=== PATIENT | female | born 1990 ===

== ENCOUNTER 2017-07-08 14:13 | Emergency (ER) | payer OTHER ==
[2017-07-08 14:38] VITALS: BP 140/85; PULSE 91; RESP 18; TEMP 98.1; O2SAT 100
[2017-07-08 15:19] LABS: SQUAMOUS EPITHIAL 11 /hpf (0-5); URINE BACTERIA RARE (<OCC); URINE BILIRUBIN NEGATIVE (NEGATIVE); URINE BLOOD NEGATIVE (NEGATIVE); URINE CLARITY CLOUDY (Clear); URINE COLOR STRAW (YELLOW); URINE GLUCOSE (UA) NEG (Normal); URINE LEUKOCYTE ESTERASE MOD Leu/uL (Negative); URINE NITRATE NEGATIVE (NEGATIVE); URINE PROTEIN NEGATIVE (NEGATIVE); URINE UROBILINOGEN 0.2-1.0 mg/dL (0.2-1.0)
--- NOTE | 2017-07-08 15:37 | ED PDOC ---
HPI: Female Pain Time Seen by Provider: 07/08/17 15:35 Chief Complaint (Nursing): Female Genitourinary Chief Complaint (Provider): DYSURIA History Per: Patient (27 Y/O FEMALE HERE FOR DYSURIA NOTED X FEW DAYS. STATES SHE HAS VAGINAL PRUIRITIS AND NOTES BURNING AFTER URINATION. FEELS BURNING IS RELATED TO EXTERNAL SURFACE AND NOT ABDOMINAL REGION. NO FEVERS/CHILLS. NO NEW SEXUAL PARTNERS BUT STATES SHE IS SEXUALLY ACTIVE.) Past Medical History Reviewed: Historical Data, Nursing Documentation, Vital Signs Vital Signs: Last Vital Signs Temp 98.1 F 07/08/17 14:36 Pulse 91 H 07/08/17 14:36 Resp 18 07/08/17 14:36 BP 140/85 07/08/17 14:36 Pulse Ox 100 07/08/17 14:36 - Medical History Other PMH: OVARIAN CYST - Family History Family History: States: No Known Family Hx - Home Medications Home Medications: Ambulatory Orders Medication Instructions Recorded Albuterol HFA [Ventolin HFA 90 2 puff IH [id number] PRN #0 puff 06/30/15 mcg/actuation (8 g)] Azithromycin [Zithromax Z-José Miguel] 250 mg PO DAILY #6 tab 06/30/15 Promethazine DM [Phenergan DM Oral 5 ml PO Q8 #100 ml 06/30/15 Syrup] Miconazole [Monistat 3] 200 mg VAG DAILY #3 sup 07/08/17 - Allergies Allergies/Adverse Reactions: Allergies Allergy/AdvReac Type Severity Reaction Status Date / Time No Known Allergies Allergy Verified 07/08/17 14:36 Review of Systems ROS Statement: Except As Marked, All Systems Reviewed And Found Negative Genitourinary Female: Positive for: Dysuria Physical Exam - Reviewed Nursing Documentation Reviewed: Yes Vital Signs Reviewed: Yes - Physical Exam Appears: Positive for: Well, Non-toxic, No Acute Distress Head Exam: Positive for: ATRAUMATIC, NORMAL INSPECTION, NORMOCEPHALIC Skin: Positive for: Normal Color, Warm, DRY Eye Exam: Positive for: EOMI, Normal appearance, PERRL ENT: Positive for: Normal ENT Inspection Neck: Positive for: Normal, Painless ROM Cardiovascular/Chest: Positive for: Regular Rate, Rhythm Respiratory: Positive for: CNT, Normal Breath Sounds Gastrointestinal/Abdominal: Positive for: Normal Exam, Bowel Sounds, Soft Pelvic Exam: Positive for: External Exam Normal, Discharge (VAGINGAL DISCHARGE THIN GREYISH NOTED. NO FOUL ODOR.) Back: Positive for: Normal Inspection Extremity: Positive for: Normal ROM Neurologic/Psych: Positive for: Alert, Oriented - Laboratory Results Urine POC: Negative Urine dip results: Negative for: Leukocyte Esterase, Blood, Nitrate, Ketones, Glucose, Bilirubin - ECG O2 Sat by Pulse Oximetry: 100 Disposition - Clinical Impression Clinical Impression: Vaginitis, Urinary tract infection - Patient ED Disposition Is Patient to be Admitted: No - Disposition [facility] Disposition: Routine/Home Disposition Time: 15:41 Condition: FAIR Prescriptions: Miconazole [Monistat 3] 200 mg VAG DAILY #3 sup Instructions: Vaginitis (ED) Forms: [facility] (Polish)
== END 2017-07-08 16:22 | disposition home or self-care (01) ==
LOC: H.ER 14:13
DX: N76.0 Acute vaginitis (principal)

== ENCOUNTER 2017-10-27 10:23 | Observation (INO) | payer OTHER ==
[2017-10-27 12:58] LABS: SQUAMOUS EPITHIAL 1 /hpf (0-5); URINE BACTERIA RARE (<OCC); URINE BILIRUBIN NEGATIVE (NEGATIVE); URINE BLOOD NEGATIVE (NEGATIVE); URINE CLARITY CLEAR (Clear); URINE COLOR COLORLESS (YELLOW); URINE GLUCOSE (UA) NEG (Normal); URINE LEUKOCYTE ESTERASE NEG Leu/uL (Negative); URINE PROTEIN NEGATIVE (NEGATIVE); URINE UROBILINOGEN 0.2-1.0 mg/dL (0.2-1.0)
--- NOTE | 2017-10-27 13:22 | ED PDOC ---
HPI: General Adult Time Seen by Provider: 10/27/17 12:03 Chief Complaint (Nursing): Hip Pain Chief Complaint (Provider): Pelvic Pain History Per: Patient, Other (offered translator interpreter but refused) History/Exam Limitations: no limitations Onset/Duration Of Symptoms: Days Current Symptoms Are (Timing): Still Present Additional Complaint(s): 27 year old female presents to the ED complaining of left pelvic pain. Patient was working at a [employer] Thursday. She was sitting on a bench close to the ground for 9hrs. When she tried to stand, she felt pain in her left pelvic area that radiates to her left lower back and left leg. Reports she has a history of ovarian cyst on left side which was initially treated with control pills but she could not tolerate the pills so she stopped. Her last visit to the OBGYN was 2 years ago and she has not followed-up since then. Denies dysuria, hematuria, incontinence, vaginal bleeding or discharge, abdominal pain, nausea, vomiting, or diarrhea. PMD: No Family Provider Past Medical History Reviewed: Historical Data, Nursing Documentation, Vital Signs Vital Signs: Last Vital Signs Temp 98.3 F 10/27/17 17:22 Pulse 71 10/27/17 17:22 Resp 20 10/27/17 17:22 BP 103/68 10/27/17 17:22 Pulse Ox 100 10/27/17 17:22 - Medical History Other PMH: ovarian cyst on left side - Surgical History Surgical History: No Surg Hx - Family History Family History: States: Unknown Family Hx - Social History Current smoker - smoking cessation education provided: No Alcohol: Social Drugs: Denies - Home Medications Home Medications: Ambulatory Orders Medication Instructions Recorded No Known Home Med 10/27/17 - Allergies Allergies/Adverse Reactions: Allergies Allergy/AdvReac Type Severity Reaction Status Date / Time No Known Allergies Allergy Verified 10/27/17 11:35 Review of Systems ROS Statement: Except As Marked, All Systems Reviewed And Found Negative Gastrointestinal: Negative for: Nausea, Vomiting, Abdominal Pain, Diarrhea Genitourinary Female: Positive for: Pelvic Pain. Negative for: Dysuria, Incontinence, Hematuria, Vaginal Discharge, Vaginal Bleeding Musculoskeletal: Positive for: Back Pain (left lower), Leg Pain (left) Physical Exam - Reviewed Nursing Documentation Reviewed: Yes Vital Signs Reviewed: Yes - Physical Exam Appears: Positive for: Well, Non-toxic, No Acute Distress Head Exam: Positive for: ATRAUMATIC, NORMAL INSPECTION, NORMOCEPHALIC Skin: Positive for: Normal Color, Warm, Dry Eye Exam: Positive for: EOMI, PERRL, Scleral icterus. Negative for: Conjunctival injection (b/l) ENT: Positive for: Normal ENT Inspection Cardiovascular/Chest: Positive for: Regular Rate, Rhythm. Negative for: Murmur , Tachycardia Respiratory: Positive for: Normal Breath Sounds. Negative for: Decreased Breath Sounds, Accessory Muscle Use, Respiratory Distress Gastrointestinal/Abdominal: Positive for: Soft, Tenderness (left-sided pelvic) Back: Positive for: Normal Inspection. Negative for: L CVA Tenderness, R CVA Tenderness Rectal: Positive for: Rectal Tone Is: (intact), Other (Wist RN present as exceptional student education teacher during entire rectal exam). Negative for: Blood Streaked Stool, Hemorrhoids, Tenderness Extremity: Positive for: Normal ROM Neurologic/Psych: Positive for: Alert, Oriented (x3) - Laboratory Results Result Diagrams: 10/27/17 12:45 10/27/17 12:45 Urine POC: Negative - ECG O2 Sat by Pulse Oximetry: 100 (RA) Pulse Ox Interpretation: Normal Medical Decision Making Medical Decision Making: Time: 1227 Initial Plan: --CMP --ED Urine --ED Urine Dipstick --CBC w/ Differential --Toradol 30mg --IV Insertion --Urinalysis --Transvaginal US --Reevaluation Time: 1449 HISTORY: L sided pelvic pain; hx of ovarian cyst COMPARISON: 04/01/2016. TECHNIQUE: Transvaginal pelvic ultrasound was performed. FINDINGS: UTERUS: Measures 7.5 x 6.0 x 4.1 cm. Retroverted, normal in size and appearance. No fibroid or other mass lesion seen. ENDOMETRIUM: Measures 1.1 mm in diameter. Unremarkable. CERVIX: No cervical abnormality identified. RIGHT OVARY: Measures 3.7 x 3.8 x 1.9 cm. No solid mass. Normal flow. There is a dominant follicle/simple cysts measuring less than 2 cm in the right ovary. LEFT OVARY: Enlarged and measures 7.1 x 7.4 x 5.7 cm. No solid mass. Normal flow. There is a large 6.4 x 6.2 x 5.3 cm simple cyst, unchanged since the prior examination. FREE FLUID: There is trace free fluid in the cul de sac, likely physiologic. OTHER FINDINGS: None. IMPRESSION: Large simple cyst in the left ovary which measures 6.4 x 6.2 x 5.3 cm not significantly changed since the prior examination. No evidence for torsion. The differential considerations include simple cyst and cystadenoma. Clinical follow -up is advised and given large size gynecologic consult is warranted. If clinically indicated, an MRI may be performed. 1551 Case d/w Dr. Chaidez who recommends admission and blood transfusion x 1. Pt. signed consent form for transfusion. Case d/w Dr. Chacko, FP resident, and arrangements made for admission. 1649 Lab is requesting a new hemoccult sample as not enough stool was present on hemoccult card. Rectal exam done again with Sabrina snyder present during entire exam as exceptional student education teacher. Rectal tone intact, no blood. Stool is yellow. Hemoccult card sent to lab. Scribe Attestation: Documented by Jw Zaidi, acting as a scribe for Maximiliano Gonzales PA-C Provider Scribe Attestation: All medical record entries made by the Scribe were at my direction and personally dictated by me. I have reviewed the chart and agree that the record accurately reflects my personal performance of the history, physical exam, medical decision making, and the department course for this patient. I have also personally directed, reviewed, and agree with the discharge instructions and disposition. Disposition - Clinical Impression Clinical Impression: Severe anemia, Pelvic pain - Patient ED Disposition Is Patient to be Admitted: Yes - Disposition Disposition Time: 15:51 Condition: STABLE
[2017-10-27 13:23] LABS: BASO % 0.6 % (0.0-2.0); EOS # 0.1 K/uL (0.0-0.7); EOS % 1.1 % (0.0-4.0); HEMOGLOBIN 7.8 g/dL (12.0-16.0); LYMPH # 1.8 K/uL (1.0-4.3); LYMPH % 24.9 % (20.0-40.0); MEAN CELL VOLUME 56.1 fl (81.0-99.0); MEAN CORPUSCULAR HEMOGLOBIN 16.7 pg (27.0-31.0); MEAN CORPUSCULAR HGB CONC 29.8 g/dL (33.0-37.0); MONO # 0.4 K/uL (0.0-0.8); MONO % 5.7 % (0.0-10.0); NEUT # 4.8 K/uL (1.8-7.0); NEUT % 67.7 % (50.0-75.0); RBC 4.69 Mil/uL (3.80-5.20); RED CELL DISTRIBUTION WIDTH 21.2 % (11.5-14.5); WHITE BLOOD COUNT 7.2 K/uL (4.8-10.8)
[2017-10-27 13:24] LABS: ALB/GLOB RATIO 1.1 (1.0-2.1); ALBUMIN 4.2 g/dL (3.5-5.0); ALT/SGPT 34 U/L (9-52); AST/SGOT 31 U/L (14-36); BLOOD UREA NITROGEN 8 mg/dl (7-17); GFR AFRICAN-AMERICAN > 60; GFR NON-AFRICAN AMERICAN > 60
--- NOTE | 2017-10-27 14:51 | US ---
HISTORY: L sided pelvic pain; hx of ovarian cyst COMPARISON: 04/01/2016. TECHNIQUE: Transvaginal pelvic ultrasound was performed. FINDINGS: UTERUS: Measures 7.5 x 6.0 x 4.1 cm. Retroverted, normal in size and appearance. No fibroid or other mass lesion seen. ENDOMETRIUM: Measures 1.1 mm in diameter. Unremarkable. CERVIX: No cervical abnormality identified. RIGHT OVARY: Measures 3.7 x 3.8 x 1.9 cm. No solid mass. Normal flow. There is a dominant follicle/simple cysts measuring less than 2 cm in the right ovary. LEFT OVARY: Enlarged and measures 7.1 x 7.4 x 5.7 cm. No solid mass. Normal flow. There is a large 6.4 x 6.2 x 5.3 cm simple cyst, unchanged since the prior examination. FREE FLUID: There is trace free fluid in the cul de sac, likely physiologic. OTHER FINDINGS: None. IMPRESSION: Large simple cyst in the left ovary which measures 6.4 x 6.2 x 5.3 cm not significantly changed since the prior examination. No evidence for torsion. The differential considerations include simple cyst and cystadenoma. Clinical follow-up is advised and given large size gynecologic consult is warranted. If clinically indicated, an MRI may be performed.
[2017-10-27 14:57] LABS: PARTIAL THROMBOPLASTIN TIME 27.1 Seconds (25.6-37.1); PROTHROMBIN TIME 11.3 Seconds (9.8-13.1)
--- NOTE | 2017-10-27 15:57 | CP.PCM.HP ---
History of Present Illness - History of Present Illness History of Present Illness: 27 yo female with pmhx of left ovarian cyst and remote hx anemia presents to [facility] ED today with complaints of intermittent left sided pelvic pain (7/10) that radiates to left lower back and left leg for 4 days. 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 Reports she had similar pain in the past about 3 yrs that resolved with massage. States she tried massage this time but did not help. Took advil 400 mg 2 days ago with mild relief. States she has hx anemia few years ago and took iron pills for few months. Denies vaginal bleeding , vaginal discharge, dysuria , hematuria, nausea, vomiting, diarrhea, constipation or blood in stool. Denies any chest pain, palpitation, dizziness, fatigue, blurry vision, fever or chills. 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 LMP 10/19/17, regular menstruation usually lasts for 4 days. Uses 5-6 pads/day (no heavy bleeding but uses multiple pads due to personal hygiene). Menarche at age 14. PAP: NILM in . Sexually active with one male partner. Uses condom. No hx STI. Past surgical history: denies Family history: Mother had hx of ovarian CA at age 48 and at age 49. Denies other cancers in the family. Denies family hx DMII, HTN or CAD. Medications: none Allegies: NKDA Social history: Denies smoking cigarettes, drinking alcohol or recreational drugs. Next of kin ( as per chart): Lisette Choudhury (sister:[phone]) ED Course: Vitals: BP 109/69, RR 16, HR 77, Temp 97.0 F, Pulse ox 100% Labs: Urine : negative CBC: 7.2>7.8/26.3<408 CMP: Potassium 3.5, rest WNL PT/INR: wnl UA: unremarkable TVUS: IMPRESSION: Large simple cyst in the left ovary which measures 6.4 x 6.2 x 5.3 cm not significantly changed since the prior examination. No evidence for torsion. The differential considerations include simple cyst and cystadenoma. Clinical follow-up is advised and given large size gynecologic consult is warranted. If clinically indicated, an MRI may be performed. Meds: Tylenol 975 mg po stat Will receive 1 unit of PRBC Present on Admission - Present on Admission Any Indicators Present on Admission: Yes History of DVT/PE: No History of Uncontrolled Diabetes: No Urinary Catheter: No Decubitus Ulcer Present: No Review of Systems - Constitutional Constitutional: absent: Chills, Fever, Headache - EENT Eyes: absent: Blurred Vision, Change in Vision Nose/Mouth/Throat: absent: Nasal Congestion, Sore Throat - Cardiovascular Cardiovascular: absent: Chest Pain, Chest Pain at Rest, Lightheadedness, Palpitations - Respiratory Respiratory: absent: Cough, Dyspnea - Gastrointestinal Gastrointestinal: Abdominal Pain. absent: Constipation, Diarrhea, Hematochezia , Melena, Nausea, Vomiting - Genitourinary Genitourinary: absent: Dysuria, Flank Pain, Hematuria - Reproductive: Female Reproductive:Female: Normal Menses - Musculoskeletal Musculoskeletal: absent: Numbness, Tingling - Integumentary Integumentary: absent: Rash, Unusual Bruising - Neurological Neurological: absent: Dizziness, Numbness - Hematologic/Lymphatic Hematologic: absent: Easy Bleeding, Easy Bruising Past Patient History - Past Social History Alcohol: Social Drugs: Denies - GENITOURINARY/GYNECOLOGICAL Other/Comment: OVARIAN CYST - PSYCHIATRIC Hx Substance Use: No - SURGICAL HISTORY Hx Surgeries: No - ANESTHESIA Hx Anesthesia: No Meds Allergies/Adverse Reactions: Allergies Allergy/AdvReac Type Severity Reaction Status Date / Time No Known Allergies Allergy Verified 10/27/17 11:35 Physical Exam - Constitutional Appears: Non-toxic, No Acute Distress - Head Exam Head Exam: ATRAUMATIC, NORMAL INSPECTION, NORMOCEPHALIC - Eye Exam Eye Exam: EOMI, Normal appearance, PERRL, Scleral icterus (mild) - ENT Exam ENT Exam: Mucous Membranes Moist, Normal Oropharynx - Neck Exam Neck exam: Positive for: Normal Inspection. Negative for: Tenderness, Thyromegaly - Respiratory Exam Respiratory Exam: Clear to Auscultation Bilateral, Rales, Rhonchi, Wheezes, NORMAL BREATHING PATTERN - Cardiovascular Exam Cardiovascular Exam: REGULAR RHYTHM, RRR, +S1, +S2 - GI/Abdominal Exam GI & Abdominal Exam: Normal Bowel Sounds, Soft, Tenderness (Mild left sided abdominal tenderness, no rebound or guarding ). absent: Distended, Guarding, Rebound - Extremities Exam Extremities exam: Positive for: normal capillary refill, normal inspection, pedal pulses present. Negative for: calf tenderness, pedal edema, tenderness - Back Exam Back exam: absent: CVA tenderness (L), CVA tenderness (R) - Neurological Exam Neurological exam: Alert, Oriented x3 - Psychiatric Exam Psychiatric exam: Anxious - Skin Skin Exam: Normal Color, Warm Results - Vital Signs Recent Vital Signs: Last Vital Signs Temp 97 F L 10/27/17 11:36 Pulse 77 10/27/17 11:36 Resp 16 10/27/17 11:36 BP 109/69 10/27/17 11:36 Pulse Ox 100 10/27/17 15:20 - Labs Result Diagrams: 10/27/17 12:45 10/27/17 12:45 Labs: Laboratory Results - last 24 hr 10/27/17 10/27/17 10/27/17 12:45 12:45 12:45 WBC 7.2 RBC 4.69 Hgb 7.8 L D Hct 26.3 L MCV 56.1 L D MCH 16.7 L MCHC 29.8 L RDW 21.2 H Plt Count 408 H D MPV 9.0 Neut % (Auto) 67.7 Lymph % (Auto) 24.9 Yates % (Auto) 5.7 Eos % (Auto) 1.1 Baso % (Auto) 0.6 Neut # (Auto) 4.8 Lymph # (Auto) 1.8 Yates # (Auto) 0.4 Eos # (Auto) 0.1 Baso # (Auto) 0.0 PT INR APTT Sodium 141 Potassium 3.5 L Chloride 100 Carbon Dioxide 27 Anion Gap 18 BUN 8 Creatinine 0.5 L Est GFR ( Amer) > 60 Est GFR (Non-Af Amer) > 60 Random Glucose 85 Calcium 9.0 Total Bilirubin 0.4 AST 31 ALT 34 Alkaline Phosphatase 83 Total Protein 8.0 Albumin 4.2 Globulin 3.7 Albumin/Globulin Ratio 1.1 Urine Color Colorless Urine Clarity Clear Urine pH 7.0 Ur Specific [place] < 1.005 Urine Protein Negative Urine Glucose (UA) Neg Urine Ketones Negative Urine Blood Negative Urine Nitrate Negative Urine Bilirubin Negative Urine Urobilinogen 0.2-1.0 Ur Leukocyte Esterase Neg Urine RBC (Auto) 1 Urine Microscopic WBC < 1 Ur Squamous Epith Cells 1 Urine Bacteria Rare BBK History Checked 10/27/17 10/27/17 14:22 14:46 WBC RBC Hgb Hct MCV MCH MCHC RDW Plt Count MPV Neut % (Auto) Lymph % (Auto) Yates % (Auto) Eos % (Auto) Baso % (Auto) Neut # (Auto) Lymph # (Auto) Yates # (Auto) Eos # (Auto) Baso # (Auto) PT 11.3 INR 1.0 APTT 27.1 Sodium Potassium Chloride Carbon Dioxide Anion Gap BUN Creatinine Est GFR ( Amer) Est GFR (Non-Af Amer) Random Glucose Calcium Total Bilirubin AST ALT Alkaline Phosphatase Total Protein Albumin Globulin Albumin/Globulin Ratio Urine Color Urine Clarity Urine pH Ur Specific [place] Urine Protein Urine Glucose (UA) Urine Ketones Urine Blood Urine Nitrate Urine Bilirubin Urine Urobilinogen Ur Leukocyte Esterase Urine RBC (Auto) Urine Microscopic WBC Ur Squamous Epith Cells Urine Bacteria BBK History Checked Patient has bt Assessment & Plan - Assessment and Plan (Free Text) Assessment: 27 yo female with pmhx of left ovarian cyst and anemia admitted for anemia with tachycardia and left sided pelvic pain. Plan: 1. Anemia with tachycardia -Admit to Tele -Will receive 1 unit of PRBC in ED -H&H: 7.8/26.3 today ( H&H in 11.2/34.9 in 04/01/2016) -Monitor -f/u fecal occult test, Iron/TIBC, ferritin, retic count and TSH 2. Left sided pelvic pain -hx left ovarian cyst (transvaginal u/s on 02/05/2016: 6.2 cm anechoic avascular left ovarian cyst) -Transvaginal US today: Large simple cyst in the left ovary which measures 6.4 x 6.2 x 5.3 cm not significantly changed since the prior examination. No evidence for torsion. -Pain control with pain meds -f/u CT of abdomen and pelvis 3. DVT prophylaxis -SCDs -Encourage ambulation 4. Code status -Full code
[2017-10-27] MEDS ORDERED: Sodium Chloride 0.9% 50 ML IV ONE (16:57)
[2017-10-27] MEDS ORDERED: Iohexol 300 100 ML IJ ONE (16:57)
[2017-10-27 17:56] VITALS: BMI 22.8
--- NOTE | 2017-10-27 18:16 | CT ---
PROCEDURE: CT Abdomen and Pelvis with contrast HISTORY: LLQ/LUQ pain, ovary cyst, anemia, fam h/o ovary CA COMPARISON: October 27, 2017. Pelvic ultrasound. Summary of findings on the comparison examination: Large simple cyst in the left ovary which measures 6.4 x 6.2 x 5.3 cm not significantly changed since the prior examination. TECHNIQUE: Contrast dose: 90 cc Omnipaque 300 Radiation dose: Total exam DLP = 360.82 mGy-cm. This CT exam was performed using one or more of the following dose reduction techniques: Automated exposure control, adjustment of the mA and/or kV according to patient size, and/or use of iterative reconstruction technique. FINDINGS: LOWER THORAX: Unremarkable. LIVER: Hepatic steatosis. No focal masses. No intrahepatic bile duct dilatation or perihepatic ascites. All GALLBLADDER AND BILE DUCTS: Unremarkable. PANCREAS: Unremarkable. No gross lesion or ductal dilatation. SPLEEN: Unremarkable. ADRENALS: Unremarkable. No mass. KIDNEYS AND URETERS: Unremarkable. No hydronephrosis. No solid mass. VASCULATURE: Unremarkable. No aortic aneurysm. BOWEL: Unremarkable. No obstruction. No gross mural thickening. APPENDIX: Normal appendix. PERITONEUM: Unremarkable. No free fluid. No free air. LYMPH NODES: Unremarkable. No enlarged lymph nodes. BLADDER: Unremarkable. REPRODUCTIVE: Focal Pelvic cyst originate from the left adnexa 6.6 x 6.2 x 6.9 cm. Trace free fluid identified in the pelvis/cul de sac. Presumed physiologic BONES: No acute fracture. OTHER FINDINGS: None. IMPRESSION: Pelvic cysts, by ultrasound originating the left adnexa. Trace fluid in the cul-de-sac. Otherwise no acute/ significant findings are identified.
[2017-10-27 22:38] VITALS: RESP 18
[2017-10-28 06:53] LABS: MEAN CELL VOLUME 58.6 fl (81.0-99.0); MEAN CORPUSCULAR HEMOGLOBIN 18.1 pg (27.0-31.0); MEAN CORPUSCULAR HGB CONC 30.9 g/dL (33.0-37.0); RBC 4.95 Mil/uL (3.80-5.20); RED CELL DISTRIBUTION WIDTH 25.4 % (11.5-14.5)
[2017-10-28 07:04] LABS: BLOOD UREA NITROGEN 8 mg/dl (7-17); GFR AFRICAN-AMERICAN > 60; GFR NON-AFRICAN AMERICAN > 60
[2017-10-28 07:36] LABS: FERRITIN 5.5 ng/Ml (6.24-137.0)
[2017-10-28 08:17] LABS: IRON 57 ug/dL (37-170)
[2017-10-28 08:26] LABS: % IRON SATURATION 12 % (20-55); TOTAL IRON BINDING CAPACITY 476 ug/dL (250-450)
--- NOTE | 2017-10-28 10:29 | CP.PCM.DIS ---
Provider - Provider Date of Admission: 10/27/17 15:30 Attending physician: Ana Chaves MD Time Spent in preparation of Discharge (in minutes): 20 Diagnosis - Discharge Diagnosis (1) Anemia Status: Resolved (2) Ovarian cyst Status: Chronic (3) Pelvic pain Status: Resolved Hospital Course - Lab Results Lab Results: Most Recent Lab Values WBC 6.0 K/uL (4.8-10.8) 10/28/17 05:55 RBC 4.95 Mil/uL (3.80-5.20) 10/28/17 05:55 Hgb 9.0 g/dL (12.0-16.0) L 10/28/17 05:55 Hct 29.0 % (34.0-47.0) L 10/28/17 05:55 MCV 58.6 fl (81.0-99.0) L D 10/28/17 05:55 MCH 18.1 pg (27.0-31.0) L 10/28/17 05:55 MCHC 30.9 g/dL (33.0-37.0) L 10/28/17 05:55 RDW 25.4 % (11.5-14.5) H 10/28/17 05:55 Plt Count 416 K/uL (130-400) H 10/28/17 05:55 MPV 9.0 fl (7.2-11.7) 10/27/17 12:45 Neut % (Auto) 67.7 % (50.0-75.0) 10/27/17 12:45 Lymph % (Auto) 24.9 % (20.0-40.0) 10/27/17 12:45 [place] % (Auto) 5.7 % (0.0-10.0) 10/27/17 12:45 Eos % (Auto) 1.1 % (0.0-4.0) 10/27/17 12:45 Baso % (Auto) 0.6 % (0.0-2.0) 10/27/17 12:45 Neut # (Auto) 4.8 K/uL (1.8-7.0) 10/27/17 12:45 Lymph # (Auto) 1.8 K/uL (1.0-4.3) 10/27/17 12:45 Alcorn # (Auto) 0.4 K/uL (0.0-0.8) 10/27/17 12:45 Eos # (Auto) 0.1 K/uL (0.0-0.7) 10/27/17 12:45 Baso # (Auto) 0.0 K/uL (0.0-0.2) 10/27/17 12:45 Retic Count 1.1 % (0.5-1.5) 10/28/17 05:55 PT 11.3 Seconds (9.8-13.1) 10/27/17 14:22 INR 1.0 (0.9-1.2) 10/27/17 14:22 APTT 27.1 Seconds (25.6-37.1) 10/27/17 14:22 Sodium 140 mmol/l (132-148) 10/28/17 05:55 Potassium 3.6 MMOL/L (3.6-5.0) 10/28/17 05:55 Chloride 101 mmol/L (98-107) 10/28/17 05:55 Carbon Dioxide 25 mmol/L (22-30) 10/28/17 05:55 Anion Gap 18 (10-20) 10/28/17 05:55 BUN 8 mg/dl (7-17) 10/28/17 05:55 Creatinine 0.6 mg/dl (0.7-1.2) L 10/28/17 05:55 Est GFR ( Amer) > 60 10/28/17 05:55 Est GFR (Non-Af Amer) > 60 10/28/17 05:55 Random Glucose 87 mg/dL (65-105) 10/28/17 05:55 Calcium 9.0 mg/dL (8.4-10.2) 10/28/17 05:55 Iron 57 ug/dL (37-170) 10/28/17 05:55 TIBC 476 ug/dL (250-450) H 10/28/17 05:55 % Saturation 12 % (20-55) L 10/28/17 05:55 Ferritin 5.5 ng/Ml (6.24-137.0) L 10/28/17 05:55 Total Bilirubin 0.4 mg/dl (0.2-1.3) 10/27/17 12:45 AST 31 U/L (14-36) 10/27/17 12:45 ALT 34 U/L (9-52) 10/27/17 12:45 Alkaline Phosphatase 83 U/L (38-126) 10/27/17 12:45 Total Protein 8.0 G/DL (6.3-8.2) 10/27/17 12:45 Albumin 4.2 g/dL (3.5-5.0) 10/27/17 12:45 Globulin 3.7 gm/dL (2.2-3.9) 10/27/17 12:45 Albumin/Globulin Ratio 1.1 (1.0-2.1) 10/27/17 12:45 TSH 3rd Generation 6.37 mIU/ML (0.46-4.68) H 10/28/17 05:55 Urine Color Colorless (YELLOW) 10/27/17 12:45 Urine Clarity Clear (Clear) 10/27/17 12:45 Urine pH 7.0 (5.0-8.0) 10/27/17 12:45 Ur Specific [place] < 1.005 (1.003-1.030) 10/27/17 12:45 Urine Protein Negative mg/dL (NEGATIVE) 10/27/17 12:45 Urine Glucose (UA) Neg mg/dL (Normal) 10/27/17 12:45 Urine Ketones Negative mg/dL (NEGATIVE) 10/27/17 12:45 Urine Blood Negative (NEGATIVE) 10/27/17 12:45 Urine Nitrate Negative (NEGATIVE) 10/27/17 12:45 Urine Bilirubin Negative (NEGATIVE) 10/27/17 12:45 Urine Urobilinogen 0.2-1.0 mg/dL (0.2-1.0) 10/27/17 12:45 Ur Leukocyte Esterase Neg Ruben/uL (Negative) 10/27/17 12:45 Urine RBC (Auto) 1 /hpf (0-3) 10/27/17 12:45 Urine Microscopic WBC < 1 /hpf (0-5) 10/27/17 12:45 Ur Squamous Epith Cells 1 /hpf (0-5) 10/27/17 12:45 Urine Bacteria Rare (<OCC) 10/27/17 12:45 Stool Occult Blood Negative (NEGATIVE) 10/27/17 16:48 Blood Type O POSITIVE 10/27/17 14:46 Antibody Screen Negative 10/27/17 14:46 Crossmatch See Detail 10/27/17 14:46 BBK History Checked Patient has bt 10/27/17 14:46 - Hospital Course Hospital Course: 27 yo female with pmhx of left ovarian cyst and anemia admitted yesterday for anemia (H&H 7.8/26.3) and left sided pelvic pain. Pt had TVUS which showed large simple cyst in the left ovary which measures 6.4 x 6.2 x [address] abdomen and pelvis ( please see report). This morning, pt's H&H is 9.0/29.0. Pt' s abdominal pain resolved and feels better. Pt is medically stable to discharge. Advised to f/u with Dr. Hemphill on 11/04/17 at 2 pm and on at 9:30 am. Medication on discharge: Ferrous Sulfate [Feosol] 325 mg PO BID #60 tab Discharge Exam - Head Exam Head Exam: ATRAUMATIC, NORMAL INSPECTION, NORMOCEPHALIC - Eye Exam Eye Exam: EOMI, Normal appearance - ENT Exam ENT Exam: Mucous Membranes Moist, Normal Oropharynx - Neck Exam Neck exam: Normal Inspection - Respiratory Exam Respiratory Exam: Clear to PA & Lateral, NORMAL BREATHING PATTERN. absent: Rales, Rhonchi, Wheezes - Cardiovascular Exam Cardiovascular Exam: REGULAR RHYTHM, RRR, +S1, +S2 - GI/Abdominal Exam GI & Abdominal Exam: Normal Bowel Sounds, Soft. absent: Tenderness - Extremities Exam Extremities exam: normal capillary refill, normal inspection, pedal pulses present - Neurological Exam Neurological exam: Alert, Oriented x3 - Psychiatric Exam Psychiatric exam: Normal Affect, Normal Mood - Skin Skin Exam: Normal Color, Warm Discharge Plan - Discharge Medications Prescriptions: Ferrous Sulfate [Feosol] 325 mg PO BID #60 tab - Follow Up Plan Condition: STABLE Disposition: HOME/ ROUTINE Instructions: Ovarian Cyst (DC) Additional Instructions: Patient to follow up with primary care provider on November 04, [address] Hemphill at 2:00pm. Patient to follow up Dr. Lopez (gynecology) on November 12, 2017 at 9: 30am. Referrals: Chirag Lopez MD [Staff Provider] -
[2017-10-28 12:00] VITALS: BP 137/87; PULSE 56; TEMP 98.8; O2SAT 99
--- NOTE | 2017-10-28 17:22 | CARD ---
APPROVED REPORT EKG Measurement Heart [id number] <Conclusion> Normal sinus rhythm Normal ECG
== END 2017-10-28 12:00 | disposition home or self-care (01) ==
LOC: H.ER 10:23 → H.ERHOLD 15:30 → H.TEL 17:12
PROVIDERS: ADMIT Family Medicine Geriatric Medicine; ATTEND Family Medicine Geriatric Medicine
DX: D64.9 Anemia, unspecified (principal); N83.202 Unspecified ovarian cyst, left side; R00.0 Tachycardia, unspecified
CPT/HCPCS: 36415; 36430; 74177; 76830; 80048; 80053; 81003; 81025; 82728; 83540; 83550; 84443; 85025; 85027; 85044; 85610; 85730; 86850; 86900; 86920; 87389; 93005; 99285; G0328; G0378; P9051; Q9967

== ENCOUNTER 2018-03-02 15:20 | Emergency (ER) | payer SELFPAY ==
[2018-03-02 15:20] VITALS: BMI 22.8
[2018-03-02 15:51] VITALS: RESP 16; TEMP 98.5
--- NOTE | 2018-03-02 17:01 | ED PDOC ---
HPI: Back Time Seen by Provider: 03/02/18 16:00 Chief Complaint (Nursing): Back Pain Chief Complaint (Provider): Back Pain History Per: Patient History/Exam Limitations: no limitations Onset/Duration Of Symptoms: Days Additional Complaint(s): Patient is a 27 y/o female who presents to the ED complaining of left lower back pain that radiates down the buttocks to the thigh for the past few days. Patient denies any trauma or injury. She states that she has had mild back pain in the past but nothing like today. Patient took Tylenol with no relief. Past Medical History Reviewed: Historical Data, Nursing Documentation, Vital Signs Vital Signs: Last Vital Signs Temp 98.5 F 03/02/18 15:48 Pulse 76 03/02/18 15:48 Resp 16 03/02/18 15:48 BP 102/71 03/02/18 15:48 Pulse Ox 100 03/02/18 15:48 - Medical History PMH: No Chronic Diseases - Surgical History Surgical History: No Surg Hx - Family History Family History: States: Unknown Family Hx - Home Medications Home Medications: Ambulatory Orders Medication Instructions Recorded Ferrous Sulfate [Feosol] 325 mg PO BID #60 tab 10/28/17 Ibuprofen [Motrin Tab] 800 mg PO Q6H PRN #20 tab 03/02/18 diaZEpam [Valium] 5 mg PO Q6H PRN #15 tab 03/02/18 - Allergies Allergies/Adverse Reactions: Allergies Allergy/AdvReac Type Severity Reaction Status Date / Time No Known Allergies Allergy Verified 03/02/18 15:48 Review of Systems ROS Statement: Except As Marked, All Systems Reviewed And Found Negative Constitutional: Negative for: Fever Musculoskeletal: Positive for: Back Pain, Leg Pain (thigh) Physical Exam - Reviewed Nursing Documentation Reviewed: Yes Vital Signs Reviewed: Yes - Physical Exam Appears: Positive for: Non-toxic, No Acute Distress Head Exam: Positive for: ATRAUMATIC, NORMOCEPHALIC Skin: Positive for: Normal Color, Warm, DRY Eye Exam: Positive for: EOMI, Normal appearance, PERRL Neck: Positive for: Normal Cardiovascular/Chest: Positive for: Regular Rate, Rhythm. Negative for: Murmur, Bradycardia, Tachycardia Respiratory: Positive for: Normal Breath Sounds. Negative for: Respiratory Distress Back: Positive for: Other (left lower back tenderness). Negative for: Vertebral Tenderness (midline tenderness) Extremity: Positive for: Other (positive straight leg raiase test). Negative fo r: Pedal Edema, Deformity Neurologic/Psych: Positive for: Alert, Oriented. Negative for: Motor/Sensory Deficits - ECG O2 Sat by Pulse Oximetry: 100 (RA) Pulse Ox Interpretation: Normal Medical Decision Making Medical Decision Making: Time: 16:12 Initial Impression: back pain Initial Plan: --ED urine --Toradol 30 mg --Valium 5 mg Pt reports feeling better on re-evaluation. Scribe Attestation: Documented by Jose Raul De Leon, acting as a scribe for Sunni Limon PA-C. Provider Scribe Attestation: All medical record entries made by the Scribe were at my direction and personally dictated by me. I have reviewed the chart and agree that the record accurately reflects my personal performance of the history, physical exam, medical decision making, and the department course for this patient. I have also personally directed, reviewed, and agree with the discharge instructions and disposition. Disposition - Clinical Impression Clinical Impression: Sciatica - Patient ED Disposition Is Patient to be Admitted: No Counseled Patient/Family Regarding: Diagnosis, Need For Followup, Rx Given - Disposition Referrals: [facility] [Outside] Disposition: Routine/Home Disposition Time: 18:43 Condition: STABLE Prescriptions: diaZEpam [Valium] 5 mg PO Q6H PRN #15 tab PRN Reason: Pain Ibuprofen [Motrin Tab] 800 mg PO Q6H PRN #20 tab PRN Reason: Pain Instructions: Sciatica (DC), Sciatica Exercises Forms: [place] ([place]i)
[2018-03-02 19:07] VITALS: BP 125/74; PULSE 84; O2SAT 97
== END 2018-03-02 19:00 | disposition home or self-care (01) ==
LOC: H.ER 15:20
DX: M54.30 Sciatica, unspecified side (principal)
CPT/HCPCS: 96372; 99283; J1885